=== PATIENT | male | born 1970 | race Caucasian/White ===

== ENCOUNTER 2016-02-23 11:32 | Emergency (ER) | payer OTHER ==
[~2016-02-23] VITALS: Ht 177.8 cm; Wt 87.8 kg
[2016-02-23 12:07] LABS: MCH 30.7 PG (29.0-34.0); MCHC 35.6 G/DL (30.0-36.0); MCV 86.4 FL (86-99); MEAN PLAT.VOLUME 9.2 uM^3 (9.0-12.4); PLATELET COUNT 186 K/uL (156-360); RBC DIS.WIDTH-CV 11.8 % (11.8-14.6); RBC DIS.WIDTH-SD 36.8 % (39-53); RED BLOOD COUNT 5.21 M/uL (4.00-5.50); WHITE BLOOD COUNT 11.8 K/uL (4.1-10.2)
[2016-02-23 12:20] LABS: CHLORIDE 103 mEq/L (99-109); POTASSIUM 4.5 mEq/L (3.7-5.4); SODIUM 137 mEq/L (136-147)
[2016-02-23 12:21] LABS: GLUCOSE 102 mg/dL (70-99)
[2016-02-23 12:23] LABS: ANION GAP 13 MEQ/L (2-14)
[2016-02-23 12:25] LABS: GFR ESTIMATE (CALCULATED) > 59 mL/min/
[2016-02-23 12:26] LABS: UREA NITROGEN (BUN) 19 mg/dL (9-23)
[2016-02-23 12:27] LABS: ADD MIUA? YES; BILIRUBIN NEGATIVE; BLOOD SMALL; COLOR YELLOW ((YELLOW)); GLUCOSE (STRIP) NEGATIVE; KETONES NEGATIVE; LEUKOCYTES NEGATIVE; NITRITE NEGATIVE; PH, URINE 7.5 (5-8); PROTEIN (STRIP) NEGATIVE; SPECIFIC GRAVITY 1.025 (1.000-1.030); UROBILINOGEN 0.2 MG/DL (0.2-1.0)
[2016-02-23 12:56] LABS: AMORPHOUS PHOSPHATE CRYSTALS RARE; BACTERIA 2+; CASTS NONE SEEN /LPF; CRYSTALS PRESENT; EPITHELIAL CELLS RARE; MUCUS RARE; RED BLOOD CELLS 0-5 /HPF (0-5); UCUL ADDED? NO; WHITE BLOOD CELLS NONE SEEN /HPF (0-5)
[2016-02-23] MEDS ORDERED: ZOFRAN ODT8 MG PO (15:13)
[2016-02-23] MEDS ORDERED: NORCO 5/3251 TABLET PO (15:13)
[2016-02-23] MEDS ORDERED: FLOMAX0.4 MG PO (15:13)
[2016-02-23 15:32] VITALS: BP 139/90
== END 2016-02-23 15:33 | disposition home or self-care (01) ==
LOC: EME 11:32 → EXP 11:32
DX: N13.2 Hydronephrosis with renal and ureteral calculous obstruction (principal); Z87.442 Personal history of urinary calculi; Z87.891 Personal history of nicotine dependence
CPT/HCPCS: 74176; 80048; 81003; 85027; 99281; 99283